=== PATIENT | female | born 1995 | race Caucasian/White ===

== ENCOUNTER 2018-04-24 20:53 | Emergency (ER) | payer BC ==
--- NOTE | 2018-04-24 21:27 | EDM.PDOC ---
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 Her last menstrual period was March 25 and she has very regular periods of 28 days. She hasn't had her period yet and she did a test at home that was positive. She comes to the ER because she wants a blood draw to confirm that she is . She is a 0 para 0 abortives 0. She has been having some abdomen mild cramping in the lower abdomen the last couple of days but no nausea or vomiting, no breast tenderness. - Related Data Allergies Allergy/AdvReac Type Severity Reaction Status Date / Time amoxicillin Allergy Other Verified 04/24/18 21:04 Home Meds: Home Meds . [No Known Home Meds] 04/24/18 [History] ED ROS GENERAL - Review of Systems Review Of Systems: See Below Constitutional: Reports: No Symptoms HEENT: Reports: No Symptoms Respiratory: Reports: No Symptoms Cardiovascular: Reports: No Symptoms Endocrine: Reports: No Symptoms GI/Abdominal: Reports: Other (As per history of present illness) : Reports: No Symptoms Musculoskeletal: Reports: No Symptoms Skin: Reports: No Symptoms Neurological: Reports: No Symptoms Psychiatric: Reports: No Symptoms Hematologic/Lymphatic: Reports: No Symptoms ED EXAM - Physical Exam Exam: See Below Exam Limited By: No Limitations General Appearance: Alert, WD/WN, No Apparent Distress Eye Exam: Bilateral Eye: Normal Inspection Ears: Normal External Exam Nose: Normal Inspection Throat/Mouth: Normal Inspection, Normal Lips, Normal Voice, No Airway Compromise Head: Normocephalic Neck: Supple Respiratory/Chest: No Respiratory Distress GI/Abdominal Exam: Normal Bowel Sounds, Soft, Non-Tender, No Mass Heart Tones: Not [place] Back Exam: Normal Inspection, Full Range of Motion Extremities: Normal Inspection, Normal Range of Motion Neurological: Alert, Oriented Psychiatric: Normal Affect, Normal Mood Skin Exam: Warm, Dry Course - Vital Signs Last Recorded V/S: Last Vital Signs Temp 98.0 F 04/24/18 21:01 Pulse 70 04/24/18 21:01 Resp 20 04/24/18 21:01 BP 135/72 04/24/18 21:01 Pulse Ox 100 04/24/18 21:01 - Orders/Labs/Meds Labs: Laboratory Tests 04/24/18 Range/Units 21:30 HCG, Quant 2253.0 mIU/mL - Re-Assessments/Exams Free Text/Narrative Re-Assessment/Exam: 04/24/18 22:37 I spoke to the patient regarding her positive test. I'll give her some names of doctors to follow up with for her OB care. I encouraged her on Friday to give the office a call so they can start her with care. Departure - Departure Time of Disposition: 22:38 Disposition: Home, Self-Care 01 Condition: Good Clinical Impression: test positive for normal first in first trimester - Discharge Information *PRESCRIPTION DRUG MONITORING PROGRAM REVIEWED*: Not Applicable *COPY OF PRESCRIPTION DRUG MONITORING REPORT IN PATIENT JOSHUA: Not Applicable Referrals: Rolf Ochoa MD [Physician] - Sammy Nolasco MD [Physician] - Forms: ED Department Discharge Additional Instructions: Continue with normal activity, you need to avoid aspirin, ibuprofen, Advil, Aleve and naproxen while you are , avoid all alcohol consumption, follow -up with the OB doctor by calling them on Friday to see when they would want come see them to start your first care visit, return to the ER if needed
== END 2018-04-24 22:46 | disposition home or self-care (01) ==
LOC: JD.ED 20:53
DX: Z32.01 Encounter for pregnancy test, result positive (principal); Z88.1 Allergy status to other antibiotic agents
CPT/HCPCS: 36415; 84702; 99282

== ENCOUNTER 2020-02-25 21:55 | Inpatient (IN) | payer BC, OTHER ==
--- NOTE | 2020-02-25 22:51 | PCM.LDHP ---
L&D History of Present Illness - General Date of Service: 02/25/20 Admit Problem/Dx: Patient Status Order with Admit Dx/Problem 02/25/20 22:11 Patient Status [ADT] Routine Admission Diagnosis/Problem Admission Diagnosis/Problem Source of Information: Patient History Limitations: Reports: No Limitations - History of Present Illness Introduction:: 24 y/o ANNA 03/01/2020 EGA 39w2d presented to L&D C/O leaking of amniotic fluid beginning at [id number]. Amnisure positive. GBS negative. Blood type O positive, antibody screen negative, Hgb/Hct 14.2/41.7, platelets [id number], Rubella immune, RPR NR, HBsAg NR, HIV NR, GC/CT probe none detected OBGS 118, Hgb 12.7, GBS 08/10/2019 negative. Plan delivery Improves with: Reports: None Worsens with: Reports: None Associated Symptoms: Reports: N - Related Data Allergies/Adverse Reactions: Allergies Allergy/AdvReac Type Severity Reaction Status Date / Time amoxicillin Allergy Other Verified 02/25/20 22:11 Home Medications: Home Meds . [No Known Home Meds] 04/24/18 [History] Past Medical History Dermatologic History: Reports: Other (See Below) Other Dermatologic History: pilonidol cyst and surgical removed and stayed in hospital for pain managment Social & Family History - Caffeine Use Caffeine Use: Reports: Coffee, Tea H&P Review of Systems - Review of Systems: Review Of Systems: See Below General: Reports: No Symptoms HEENT: Reports: No Symptoms Pulmonary: Reports: No Symptoms Cardiovascular: Reports: No Symptoms Gastrointestinal: Reports: No Symptoms Genitourinary: Reports: No Symptoms Musculoskeletal: Reports: No Symptoms Skin: Reports: No Symptoms Psychiatric: Reports: No Symptoms Neurological: Reports: No Symptoms Hematologic/Lymphatic: Reports: No Symptoms Immunologic: Reports: No Symptoms L&D Exam - Exam Exam: See Below - Vital Signs Weight: 189 lb 3.2 oz - OB Specific Fundal Height In cm: 39 Contraction Duration (sec): 60 Contraction Frequency (min): 5 Contraction Intensity: Mild to Moderate Movement: Active Heart Tones: Present Heart Tones per Min: 135 Heart Rate (FHR) Variability: Moderate (6-25 bmp) Presentation: Vertex - Hanley Score Hanley Score Cervix Position: Posterior Hanley Score Consistency: Soft Hanley Score Effacement: 31-50% Hanley Score Dilation: 1-2 cm Hanley Score 's Station: -2 Hanley Score Total: 5 - Exam General: Alert, Oriented HEENT: Conjunctiva Clear, Mucosa Moist & [place] Neck: Supple, Trachea Midline Lungs: Clear to Auscultation, Normal Respiratory Effort Cardiovascular: Regular Rate, Regular Rhythm GI/Abdominal Exam: Normal Bowel Sounds, Soft, Non-Tender Genitourinary: Normal external exam Extremities: Normal Inspection, Non-Tender, No Pedal Edema, Normal Capillary Refill Skin: Warm, Dry, Intact Psychiatric: Alert, Normal Affect, Normal Mood - Problem List (1) 39 weeks gestation of SNOMED Code(s): 01760050 ICD Code: Z3A.39 - 39 WEEKS GESTATION OF Status: Acute Current Visit: Yes (2) Premature rupture of membranes SNOMED Code(s): 82404768 ICD Code: O42.90 - TYSON ROM, 7TH0 BETW RUPT & ONST LABR, UNSP WEEKS OF GEST Status: Acute Current Visit: Yes Qualifiers: PROM onset of labor timing: onset of labor within 24 hours of rupture PROM gestational age: full term Qualified Code(s): O42.02 - Full-term premature rupture of membranes, onset of labor within 24 hours of rupture Problem List Initiated/Reviewed/Updated: No Orders Last 24hrs: Active Orders 24 hr Category Date Time Status Patient Status [ADT] Routine ADT 02/25/20 22:11 Active Non Stress Test [RC] PER UNIT ROUTINE Care 02/25/20 22:11 Active Vital Signs [RC] PER UNIT ROUTINE Care 02/25/20 22:11 Active AMNISURE RUPTURE MEMBRAN [BF] Stat Lab 02/25/20 22:30 Received Resuscitation Status Routine Resus Stat 02/25/20 22:11 Ordered Assessment/Plan Comment:: Plan delivery
[2020-02-25] MEDS ORDERED: Sodium Chloride 0.9% 10 ML Syringe FLUSH PRN (23:08)
[2020-02-25] MEDS ORDERED: Nalbuphine 10 MG/ML Syringe IVPUSH PRN (23:08)
[2020-02-25] MEDS ORDERED: Ondansetron 4 MG/2 ML SDV IVPUSH PRN (23:08)
[2020-02-25] MEDS ORDERED: Oxytocin/Lactated Ringers 20 UNIT/1,000 ML BAG IV SCH (23:15)
[2020-02-25] MEDS ORDERED: Oxytocin/Lactated Ringers 10 UNIT/1,000 ML BAG IV SCH (23:15)
[2020-02-26] MEDS: Lactated Ringers 1,000 ML IV SCH ×4 (01:47→06:16)
[2020-02-26] MEDS ORDERED: Bupivacaine/fentaNYL/NS 100 ML Bag EPIDUR PRN (02:16)
[2020-02-26] MEDS ORDERED: ePHEDrine 50 MG/ML SDV IVPUSH PRN (02:16)
[2020-02-26] MEDS ORDERED: diphenhydrAMINE 50 MG/ML SDV IVPUSH PRN (02:16)
[2020-02-26] MEDS ORDERED: fentaNYL 100 MCG/2 ML SDV EPIDUR PRN (02:16)
--- NOTE | 2020-02-26 03:33 | PCM.PREANE ---
Preanesthetic Assessment - Procedure Proposed Procedure: Epidural - Anesthesia/Transfusion/Family Hx Anesthesia History: Prior Anesthesia Without Reaction Transfusion History: No Prior Transfusion(s) - Review of Systems General: No Symptoms Pulmonary: No Symptoms Cardiovascular: No Symptoms Gastrointestinal: Abdominal Pain Neurological: No Symptoms Other: Reports: None - Physical Assessment Vital Signs: Last Vital Signs Temp 36.4 C 02/25/20 22:11 Pulse 66 02/25/20 22:11 Resp 16 02/25/20 22:11 BP 139/75 02/25/20 22:11 Pulse Ox 100 02/25/20 22:11 Height: 1.75 m Weight: 85.82 kg ASA Class: 2 Mental Status: Alert & Oriented x3 Airway Class: Mallampati = 1 Dentition: Reports: Normal Dentition Thyro-Mental Finger Breadths: 3 Mouth Opening Finger Breadths: 3 ROM/Head Extension: Full Lungs: Clear to Auscultation, Normal Respiratory Effort Cardiovascular: Regular Rate, Regular Rhythm - Lab Values: Laboratory Last Values WBC 13.55 K/mm3 (3.98-10.04) H 02/26/20 00:06 RBC 4.36 M/mm3 (3.98-5.22) 02/26/20 00:06 Hgb 13.1 gm/dl (11.2-15.7) 02/26/20 00:06 Hct 40.7 % (34.1-44.9) 02/26/20 00:06 MCV 93.3 fl (79.4-94.8) 02/26/20 00:06 MCH 30.0 pg (25.6-32.2) 02/26/20 00:06 MCHC 32.2 g/dl (32.2-35.5) 02/26/20 00:06 RDW Std Deviation 43.7 fL (36.4-46.3) 02/26/20 00:06 Plt Count 162 K/mm3 (182-369) L 02/26/20 00:06 MPV 12.8 fl (9.4-12.3) H 02/26/20 00:06 Neut % (Auto) 68.0 % (34.0-71.1) 02/26/20 00:06 Lymph % (Auto) 21.9 % (19.3-51.7) 02/26/20 00:06 [place] % (Auto) 8.9 % (4.7-12.5) 02/26/20 00:06 Eos % (Auto) 0.9 (0.7-5.8) 02/26/20 00:06 Baso % (Auto) 0.1 % (0.1-1.2) 02/26/20 00:06 Neut # (Auto) 9.21 K/mm3 (1.56-6.13) H 02/26/20 00:06 Lymph # (Auto) 2.97 K/mm3 (1.18-3.74) 02/26/20 00:06 [place] # (Auto) 1.20 K/mm3 (0.24-0.36) H 02/26/20 00:06 Eos # (Auto) 0.12 K/mm3 (0.04-0.36) 02/26/20 00:06 Baso # (Auto) 0.02 K/mm3 (0.01-0.08) 02/26/20 00:06 Manual Slide Review Abnormal smear 02/26/20 00:06 Membrane Rupture Positive H 02/25/20 22:30 Blood Type O POSITIVE 02/26/20 00:06 Gel Antibody Screen Negative 02/26/20 00:06 - Allergies Allergies/Adverse Reactions: Allergies Allergy/AdvReac Type Severity Reaction Status Date / Time amoxicillin Allergy Other Verified 02/25/20 22:11 - Acknowledgements Anesthesia Type Planned: Epidural Pt an Appropriate Candidate for the Planned Anesthesia: Yes Alternatives and Risks of Anesthesia Discussed w Pt/Guardian: Yes Pt/Guardian Understands and Agrees with Anesthesia Plan: Yes PreAnesthesia Questionnaire HEENT History: Reports: Impaired Vision, Other (See Below) Other HEENT History: wears glasses/contacts MEDICAL COLLECTIONS History: Reports: Neurological History: Reports: Migraines Dermatologic History: Reports: Other (See Below) Other Dermatologic History: pilonidol cyst and surgical removed and stayed in hospital for pain managment - Infectious Disease History Infectious Disease History: Reports: Chicken Pox - Past Surgical History Musculoskeletal Surgical History: Reports: Other (See Below) Other Musculoskeletal Surgeries/Procedures:: tailbone surgery 2013. - SUBSTANCE USE Smoking Status *Q: Never Smoker Recreational Drug Use History: No - HOME MEDS Home Medications: Home Meds Calcium Carbonate [Tums] 500 mg PO 02/26/20 [History] Vits #93/Iron Fum/FA [ Formula Tablet] 1 each PO 02/26/20 [ History] - CURRENT (IN HOUSE) MEDS Current Meds: Current Medications Diphenhydramine HCl (Benadryl) 25 mg IVPUSH Q6H PRN PRN Reason: pruritis Ephedrine Sulfate (Ephedrine Sulfate) 5 mg IVPUSH ASDIRECTED PRN PRN Reason: Hypotension Fentanyl (Sublimaze) 100 mcg EPIDUR Q3H PRN PRN Reason: Pain Last Admin: 02/26/20 02:35 Dose: 100 mcg Fentanyl/Bupivacaine HCl (Fentanyl/Bupivacaine/Ns 2 Mcg-0.125% 100 Ml) 100 ml EPIDUR ASDIRECTED PRN PRN Reason: Pain Last Admin: 02/26/20 02:44 Dose: 100 ml Lactated Ringer's (Ringers, Lactated) 1,000 mls @ 100 mls/hr IV ASDIRECTED LINDA Last Infusion: 02/26/20 03:03 Dose: 150 mls/hr Oxytocin/Lactated Ringer's (Pitocin In Lr 20 Units/1,000 Ml) 20 unit in 1,000 mls @ 500 mls/hr IV .CONTINUOUS LINDA Oxytocin/Lactated Ringer's (Pitocin In Lr 10 Units/1,000 Ml) 10 unit in 1,000 mls @ 12 mls/hr IV TITRATE LINDA; Protocol Nalbuphine HCl (Nubain) 10 mg IVPUSH Q2H PRN PRN Reason: Pain Ondansetron HCl (Zofran) 4 mg IVPUSH Q4H PRN PRN Reason: Nausea/Vomiting Sodium Chloride (Saline Flush) 10 ml FLUSH ASDIRECTED PRN PRN Reason: Keep Vein Open
--- NOTE | 2020-02-26 07:42 | PCM.DEL ---
L & D Note - General Info Date of Service: 02/26/20 Mother's Due Date: 03/01/20 - Delivery Note Labor: Spontaneous Delivery Outcome: Livebirth (male liveborn Friday02/26[birth year]2020 0725 MUKUND under epidural over no episiotomy or laceration, nuchal cord x1 reduced over head. APGARS 8/9. Weight pending) Infant Delivery Method: Spontaneous Vaginal Delivery-Single Infant Delivery Mode: Spontaneous Presentation: Left Occiput Anterior (MUKUND) Nuchal Cord: Present (x1) Prep: Povidone-Iodine (Betadine Anesthesia Type: Epidural Amniotic Fluid Description: Clear Episiotomy Type: None Laceration: None Placenta: Intact, Spontaneous (72802/26/2020) Cord: 3 Vessels Estimated Blood Loss: 250 Resuscitation Needed: No : Suctioned, Bulb Syringe, Stimulated, Warmed, Marcell Used, Warmer Used Provider: Ortiz Morrissey Score 1 min: 8 Score 5 min: 9 - General Info Date of Service: 02/26/20 Functional Status: Reports: Pain Controlled - Review of Systems General: Reports: No Symptoms HEENT: Reports: No Symptoms Pulmonary: Reports: No Symptoms Cardiovascular: Reports: No Symptoms Gastrointestinal: Reports: No Symptoms Genitourinary: Reports: No Symptoms Musculoskeletal: Reports: No Symptoms Skin: Reports: No Symptoms Neurological: Reports: No Symptoms Psychiatric: Reports: No Symptoms - Patient Data Vitals - Most Recent: Last Vital Signs Temp 97.6 F 02/25/20 22:11 Pulse 66 02/25/20 22:11 Resp 16 02/25/20 22:11 BP 139/75 02/25/20 22:11 Pulse Ox 100 02/25/20 22:11 Weight - Most Recent: 189 lb 3.2 oz Lab Results Last 24 Hours: Laboratory Results - last 24 hr 02/25/20 02/26/20 02/26/20 Range/Units 22:30 00:06 00:06 WBC 13.55 H (3.98-10.04) K/mm3 RBC 4.36 (3.98-5.22) M/mm3 Hgb 13.1 (11.2-15.7) gm/dl Hct 40.7 (34.1-44.9) % MCV 93.3 (79.4-94.8) fl MCH 30.0 (25.6-32.2) pg MCHC 32.2 (32.2-35.5) g/dl RDW Std Deviation 43.7 (36.4-46.3) fL Plt Count 162 L (182-369) K/mm3 MPV 12.8 H (9.4-12.3) fl Neut % (Auto) 68.0 (34.0-71.1) % Lymph % (Auto) 21.9 (19.3-51.7) % [place] % (Auto) 8.9 (4.7-12.5) % Eos % (Auto) 0.9 (0.7-5.8) Baso % (Auto) 0.1 (0.1-1.2) % Neut # (Auto) 9.21 H (1.56-6.13) K/mm3 Lymph # (Auto) 2.97 (1.18-3.74) K/mm3 [place] # (Auto) 1.20 H (0.24-0.36) K/mm3 Eos # (Auto) 0.12 (0.04-0.36) K/mm3 Baso # (Auto) 0.02 (0.01-0.08) K/mm3 Manual Slide Review Abnormal smear Membrane Rupture Positive H Blood Type O POSITIVE Gel Antibody Screen Negative Med Orders - Current: Current Medications Diphenhydramine HCl (Benadryl) 25 mg IVPUSH Q6H PRN PRN Reason: pruritis Ephedrine Sulfate (Ephedrine Sulfate) 5 mg IVPUSH ASDIRECTED PRN PRN Reason: Hypotension Fentanyl (Sublimaze) 100 mcg EPIDUR Q3H PRN PRN Reason: Pain Last Admin: 02/26/20 02:35 Dose: 100 mcg Fentanyl/Bupivacaine HCl (Fentanyl/Bupivacaine/Ns 2 Mcg-0.125% 100 Ml) 100 ml EPIDUR ASDIRECTED PRN PRN Reason: Pain Last Admin: 02/26/20 02:44 Dose: 100 ml Lactated Ringer's (Ringers, Lactated) 1,000 mls @ 100 mls/hr IV ASDIRECTED LINDA Last Admin: 02/26/20 06:16 Dose: 100 mls/hr Oxytocin/Lactated Ringer's (Pitocin In Lr 20 Units/1,000 Ml) 20 unit in 1,000 mls @ 500 mls/hr IV .CONTINUOUS LINDA Oxytocin/Lactated Ringer's (Pitocin In Lr 10 Units/1,000 Ml) 10 unit in 1,000 mls @ 12 mls/hr IV TITRATE LINDA; Protocol Nalbuphine HCl (Nubain) 10 mg IVPUSH Q2H PRN PRN Reason: Pain Ondansetron HCl (Zofran) 4 mg IVPUSH Q4H PRN PRN Reason: Nausea/Vomiting Sodium Chloride (Saline Flush) 10 ml FLUSH ASDIRECTED PRN PRN Reason: Keep Vein Open - Exam General: Alert, Oriented HEENT: Pupils Equal, Mucous Membr. Moist/[place] Neck: Supple Lungs: Clear to Auscultation, Normal Respiratory Effort Cardiovascular: Regular Rate, Regular Rhythm GI/Abdominal Exam: Normal Bowel Sounds Extremities: Normal Inspection, Non-Tender, No Pedal Edema, Normal Capillary Refill Skin: Warm, Dry, Intact Psy/Mental Status: Alert, Normal Affect, Normal Mood - Problem List & Annotations (1) 39 weeks gestation of SNOMED Code(s): 05353615 Code(s): Z3A.39 - 39 WEEKS GESTATION OF Status: Acute Current Visit: Yes (2) Premature rupture of membranes SNOMED Code(s): 84342500 Code(s): O42.90 - TYSON ROM, 7TH0 BETW RUPT & ONST LABR, UNSP WEEKS OF GEST Status: Acute Current Visit: Yes Qualifiers: PROM onset of labor timing: onset of labor within 24 hours of rupture PROM gestational age: full term Qualified Code(s): O42.02 - Full-term premature rupture of membranes, onset of labor within 24 hours of rupture (3) Encounter for full-term uncomplicated delivery SNOMED Code(s): 457585992 Code(s): O80 - ENCOUNTER FOR FULL-TERM UNCOMPLICATED DELIVERY Status: Acute Current Visit: Yes - Problem List Review Problem List Initiated/Reviewed/Updated: No - My Orders Last 24 Hours: My Active Orders 02/25/20 22:11 Non Stress Test [RC] PER UNIT ROUTINE Vital Signs [RC] PER UNIT ROUTINE Resuscitation Status Routine 02/25/20 23:08 Patient Status [ADT] Routine Activity as Tolerated [RC] PFP Communication Order [RC] ASDIRECTED Notify Provider [RC] PFP Notify Provider [RC] PRN RAPID PLASMA REAGIN,RPR [CHEM] Routine Nalbuphine [Nubain] 10 mg IVPUSH Q2H PRN Ondansetron [Zofran] 4 mg IVPUSH Q4H PRN Sodium Chloride 0.9% [Saline Flush] 10 ml FLUSH ASDIRECTED PRN Electronic Heart Tones Ext w TOCO [WOMSER] Routine Electronic Heart Tones Internal [WOMSER] Per Unit Routine Peripheral IV Insertion Adult [OM.PC] Routine 02/25/20 23:09 Heart Tones [RC] ASDIRECTED Peripheral IV Care [RC] . DIRECTED 02/25/20 23:15 Lactated Ringers [Ringers, Lactated] 1,000 ml IV ASDIRECTED Oxytocin/Lactated Ringers [Pitocin in LR 10 Units/1,000 ML] 10 unit in 1,000 ml IV TITRATE Oxytocin/Lactated Ringers [Pitocin in LR 20 Units/1,000 ML] 20 unit in 1,000 ml IV .CONTINUOUS 02/25/20 Breakfast Regular Diet [DIET] 02/26/20 01:24 PATIENT RETYPE [BBK] Routine - Assessment Assessment:: Normal delivery no lacerations, premature rupture of membranes delivered in <24 hours, 39w3d EGA - Plan Plan:: Plan delivery
[2020-02-26] MEDS ORDERED: Ibuprofen 600 MG Tab PO PRN (08:49)
[2020-02-26] MEDS ORDERED: Bupivacaine 0.25% 10 ML SDV ONE (11:00)
[2020-02-26] MEDS ORDERED: Docusate Sodium 100 MG Cap PO PRN (11:50)
[2020-02-26] MEDS ORDERED: Acetaminophen 325 MG Tab PO PRN (11:50)
[2020-02-26] MEDS ORDERED: Witch Hazel Medicated Pads 40/Jar TOP PRN (11:50)
[2020-02-26] MEDS: Ibuprofen 600 MG Tab PO PRN ×2 (15:22→20:59)
[2020-02-27] MEDS: Ibuprofen 600 MG Tab PO PRN (09:13)
--- NOTE | 2020-02-27 10:47 | PCM.DCSUM1 ---
Discharge Summary - Hospital Course Free Text/Narrative:: [facility] LIVE L/D Delivery Note Patient Name: JUAN MIRANDA Date of : 89 Patient Status: Inpatient Attending Provider: Ortiz Morrissey Date: 02/26/20 07:36 Initialization Date: 02/26/20 07:36 L & D Note - General Info Date of Service: 02/26/20 Mother's Due Date: 03/01/20 - Delivery Note Labor: Spontaneous Delivery Outcome: Livebirth (male liveborn Friday02/26/2020 0725 MUKUND under epidural over no episiotomy or laceration, nuchal cord x1 reduced over head. APGARS 8/9. Weight pending) Delivery Method: Spontaneous Vaginal Delivery-Single Infant Delivery Mode: Spontaneous Presentation: Left Occiput Anterior (MUKUND) Nuchal Cord: Present (x1) Prep: Povidone-Iodine (Betadine Anesthesia Type: Epidural Amniotic Fluid Description: Clear Episiotomy Type: None Laceration: None Placenta: Intact, Spontaneous (72802/26/2020) Cord: 3 Vessels Estimated Blood Loss: 250 Resuscitation Needed: No Villanueva: Suctioned, Bulb Syringe, Stimulated, Warmed, Startex Used, Warmer Used Provider: Ortiz Morrissey Score 1 min: 8 Score 5 min: 9 - General Info Date of Service: 02/26/20 Functional Status: Reports: Pain Controlled - Review of Systems General: Reports: No Symptoms HEENT: Reports: No Symptoms Pulmonary: Reports: No Symptoms Cardiovascular: Reports: No Symptoms Gastrointestinal: Reports: No Symptoms Genitourinary: Reports: No Symptoms Musculoskeletal: Reports: No Symptoms Skin: Reports: No Symptoms Neurological: Reports: No Symptoms Psychiatric: Reports: No Symptoms - Patient Data Vitals - Most Recent: Last Vital Signs Temp 97.6 F 02/25/20 22:11 Pulse 66 02/25/20 22:11 Resp 16 02/25/20 22:11 BP 139/75 02/25/20 22:11 Pulse Ox 100 02/25/20 22:11 Weight - Most Recent: 189 lb 3.2 oz Lab Results Last 24 Hours: Laboratory Results - last 24 hr 02/25/20 02/26/2002/25/20 Range/Units 22:30 00:06 00:06 WBC 13.55 H (3.98-10.04) K/mm3 RBC 4.36 (3.98-5.22) M/mm3 Hgb 13.1 (11.2-15.7) gm/dl Hct 40.7 (34.1-44.9) % MCV 93.3 (79.4-94.8) fl MCH 30.0 (25.6-32.2) pg MCHC 32.2 (32.2-35.5) g/dl RDW Std Deviation 43.7 (36.4-46.3) fL Plt Count 162 L (182-369) K/mm3 MPV 12.8 H (9.4-12.3) fl Neut % (Auto) 68.0 (34.0-71.1) % Lymph % (Auto) 21.9 (19.3-51.7) % Walker % (Auto) 8.9 (4.7-12.5) % Eos % (Auto) 0.9 (0.7-5.8) Baso % (Auto) 0.1 (0.1-1.2) % Neut # (Auto) 9.21 H (1.56-6.13) K/mm3 Lymph # (Auto) 2.97 (1.18-3.74) K/mm3 Walker # (Auto) 1.20 H (0.24-0.36) K/mm3 Eos # (Auto) 0.12 (0.04-0.36) K/mm3 Baso # (Auto) 0.02 (0.01-0.08) K/mm3 Manual Slide Review Abnormal smear Membrane Rupture Positive H Blood Type O POSITIVE Gel Antibody Screen Negative Med Orders - Current: Current Medications Diphenhydramine HCl (Benadryl) 25 mg IVPUSH Q6H PRN PRN Reason: pruritis Ephedrine Sulfate (Ephedrine Sulfate) 5 mg IVPUSH ASDIRECTED PRN PRN Reason: Hypotension Fentanyl (Sublimaze) 100 mcg EPIDUR Q3H PRN PRN Reason: Pain Last Admin: 02/26/20 02:35 Dose: 100 mcg Fentanyl/Bupivacaine HCl (Fentanyl/Bupivacaine/Ns 2 Mcg-0.125% 100 Ml) 100 ml EPIDUR ASDIRECTED PRN PRN Reason: Pain Last Admin: 02/26/20 02:44 Dose: 100 ml Lactated Ringer's (Ringers, Lactated) 1,000 mls @ 100 mls/hr IV ASDIRECTED LINDA Last Admin: 02/26/20 06:16 Dose: 100 mls/hr Oxytocin/Lactated Ringer's (Pitocin In Lr 20 Units/1,000 Ml) 20 unit in 1,000 mls @ 500 mls/hr IV .CONTINUOUS LINDA Oxytocin/Lactated Ringer's (Pitocin In Lr 10 Units/1,000 Ml) 10 unit in 1,000 mls @ 12 mls/hr IV TITRATE LINDA; Protocol Nalbuphine HCl (Nubain) 10 mg IVPUSH Q2H PRN PRN Reason: Pain Ondansetron HCl (Zofran) 4 mg IVPUSH Q4H PRN PRN Reason: Nausea/Vomiting Sodium Chloride (Saline Flush) 10 ml FLUSH ASDIRECTED PRN PRN Reason: Keep Vein Open - Exam General: Alert, Oriented HEENT: Pupils Equal, Mucous Membr. Moist/[place] Neck: Supple Lungs: Clear to Auscultation, Normal Respiratory Effort Cardiovascular: Regular Rate, Regular Rhythm GI/Abdominal Exam: Normal Bowel Sounds Extremities: Normal Inspection, Non-Tender, No Pedal Edema, Normal Capillary Refill Skin: Warm, Dry, Intact Psy/Mental Status: Alert, Normal Affect, Normal Mood - Problem List & Annotations (1) 39 weeks gestation of SNOMED Code(s): 75225668 Code(s): Z3A.39 - 39 WEEKS GESTATION OF Status: Acute Current Visit: Yes (2) Premature rupture of membranes SNOMED Code(s): 95277332 Code(s): O42.90 - TYSON ROM, 7TH0 BETW RUPT & ONST LABR, UNSP WEEKS OF GEST Status: Acute Current Visit: Yes Qualifiers: PROM onset of labor timing: onset of labor within 24 hours of rupture PROM gestational age: full term Qualified Code(s): O42.02 - Full-term premature rupture of membranes, onset of labor within 24 hours of rupture (3) Encounter for full-term uncomplicated delivery SNOMED Code(s): 487202982 Code(s): O80 - ENCOUNTER FOR FULL-TERM UNCOMPLICATED DELIVERY Status: Acute Current Visit: Yes - Problem List Review Problem List Initiated/Reviewed/Updated: No - My Orders Last 24 Hours: My Active Orders 02/25/20 22:11 Non Stress Test [RC] PER UNIT ROUTINE Vital Signs [RC] PER UNIT ROUTINE Resuscitation Status Routine 02/25/20 23:08 Patient Status [ADT] Routine Activity as Tolerated [RC] PFP Communication Order [RC] ASDIRECTED Notify Provider [RC] PFP Notify Provider [RC] PRN RAPID PLASMA REAGIN,RPR [CHEM] Routine Nalbuphine [Nubain] 10 mg IVPUSH Q2H PRN Ondansetron [Zofran] 4 mg IVPUSH Q4H PRN Sodium Chloride 0.9% [Saline Flush] 10 ml FLUSH ASDIRECTED PRN Electronic Heart Tones Ext w TOCO [WOMSER] Routine Electronic Heart Tones Internal [WOMSER] Per Unit Routine Peripheral IV Insertion Adult [OM.PC] Routine 02/25/20 23:09 Heart Tones [RC] ASDIRECTED Peripheral IV Care [RC] . DIRECTED 02/25/20 23:15 Lactated Ringers [Ringers, Lactated] 1,000 ml IV ASDIRECTED Oxytocin/Lactated Ringers [Pitocin in LR 10 Units/1,000 ML] 10 unit in 1,000 ml IV TITRATE Oxytocin/Lactated Ringers [Pitocin in LR 20 Units/1,000 ML] 20 unit in 1,000 ml IV .CONTINUOUS 02/25/20 Breakfast Regular Diet [DIET] 02/26/20 01:24 PATIENT RETYPE [BBK] Routine - Assessment Assessment:: Normal delivery no lacerations, premature rupture of membranes delivered in <24 hours, 39w3d EGA - Plan Plan:: Plan delivery HPI Initial Comments: [facility] LIVE L/D Delivery Note Patient Name: JUAN MIRANDA Date of : 89 Patient Status: Inpatient Attending Provider: Ortiz Morrissey Date: 02/26/20 07:36 Initialization Date: 02/26/20 07:36 L & D Note - General Info Date of Service: 02/26/20 Mother's Due Date: 03/01/20 - Delivery Note Labor: Spontaneous Delivery Outcome: Livebirth (male liveborn Friday02/26/2020 0725 MUKUND under epidural over no episiotomy or laceration, nuchal cord x1 reduced over head. APGARS 8/9. Weight pending) Delivery Method: Spontaneous Vaginal Delivery-Single Infant Delivery Mode: Spontaneous Presentation: Left Occiput Anterior (MUKUND) Nuchal Cord: Present (x1) Prep: Povidone-Iodine (Betadine Anesthesia Type: Epidural Amniotic Fluid Description: Clear Episiotomy Type: None Laceration: None Placenta: Intact, Spontaneous (72802/26/2020) Cord: 3 Vessels Estimated Blood Loss: 250 Resuscitation Needed: No Villanueva: Suctioned, Bulb Syringe, Stimulated, Warmed, Startex Used, Warmer Used Provider: Ortiz Morrissey Score 1 min: 8 Score 5 min: 9 - General Info Date of Service: 02/26/20 Functional Status: Reports: Pain Controlled - Review of Systems General: Reports: No Symptoms HEENT: Reports: No Symptoms Pulmonary: Reports: No Symptoms Cardiovascular: Reports: No Symptoms Gastrointestinal: Reports: No Symptoms Genitourinary: Reports: No Symptoms Musculoskeletal: Reports: No Symptoms Skin: Reports: No Symptoms Neurological: Reports: No Symptoms Psychiatric: Reports: No Symptoms - Patient Data Vitals - Most Recent: Last Vital Signs Temp 97.6 F 02/25/20 22:11 Pulse 66 02/25/20 22:11 Resp 16 02/25/20 22:11 BP 139/75 02/25/20 22:11 Pulse Ox 100 02/25/20 22:11 Weight - Most Recent: 189 lb 3.2 oz Lab Results Last 24 Hours: Laboratory Results - last 24 hr 02/25/20 02/26/20 02/26/20 Range/Units 22:30 00:06 00:06 WBC 13.55 H (3.98-10.04) K/mm3 RBC 4.36 (3.98-5.22) M/mm3 Hgb 13.1 (11.2-15.7) gm/dl Hct 40.7 (34.1-44.9) % MCV 93.3 (79.4-94.8) fl MCH 30.0 (25.6-32.2) pg MCHC 32.2 (32.2-35.5) g/dl RDW Std Deviation 43.7 (36.4-46.3) fL Plt Count 162 L (182-369) K/mm3 MPV 12.8 H (9.4-12.3) fl Neut % (Auto) 68.0 (34.0-71.1) % Lymph % (Auto) 21.9 (19.3-51.7) % Walker % (Auto) 8.9 (4.7-12.5) % Eos % (Auto) 0.9 (0.7-5.8) Baso % (Auto) 0.1 (0.1-1.2) % Neut # (Auto) 9.21 H (1.56-6.13) K/mm3 Lymph # (Auto) 2.97 (1.18-3.74) K/mm3 Walker # (Auto) 1.20 H (0.24-0.36) K/mm3 Eos # (Auto) 0.12 (0.04-0.36) K/mm3 Baso # (Auto) 0.02 (0.01-0.08) K/mm3 Manual Slide Review Abnormal smear Membrane Rupture Positive H Blood Type O POSITIVE Gel Antibody Screen Negative Med Orders - Current: Current Medications Diphenhydramine HCl (Benadryl) 25 mg IVPUSH Q6H PRN PRN Reason: pruritis Ephedrine Sulfate (Ephedrine Sulfate) 5 mg IVPUSH ASDIRECTED PRN PRN Reason: Hypotension Fentanyl (Sublimaze) 100 mcg EPIDUR Q3H PRN PRN Reason: Pain Last Admin: 02/26/20 02:35 Dose: 100 mcg Fentanyl/Bupivacaine HCl (Fentanyl/Bupivacaine/Ns 2 Mcg-0.125% 100 Ml) 100 ml EPIDUR ASDIRECTED PRN PRN Reason: Pain Last Admin: 02/26/20 02:44 Dose: 100 ml Lactated Ringer's (Ringers, Lactated) 1,000 mls @ 100 mls/hr IV ASDIRECTED LINDA Last Admin: 02/26/20 06:16 Dose: 100 mls/hr Oxytocin/Lactated Ringer's (Pitocin In Lr 20 Units/1,000 Ml) 20 unit in 1,000 mls @ 500 mls/hr IV .CONTINUOUS LINDA Oxytocin/Lactated Ringer's (Pitocin In Lr 10 Units/1,000 Ml) 10 unit in 1,000 mls @ 12 mls/hr IV TITRATE LINDA; Protocol Nalbuphine HCl (Nubain) 10 mg IVPUSH Q2H PRN PRN Reason: Pain Ondansetron HCl (Zofran) 4 mg IVPUSH Q4H PRN PRN Reason: Nausea/Vomiting Sodium Chloride (Saline Flush) 10 ml FLUSH ASDIRECTED PRN PRN Reason: Keep Vein Open - Exam General: Alert, Oriented HEENT: Pupils Equal, Mucous Membr. Moist/[place] Neck: Supple Lungs: Clear to Auscultation, Normal Respiratory Effort Cardiovascular: Regular Rate, Regular Rhythm GI/Abdominal Exam: Normal Bowel Sounds Extremities: Normal Inspection, Non-Tender, No Pedal Edema, Normal Capillary Refill Skin: Warm, Dry, Intact Psy/Mental Status: Alert, Normal Affect, Normal Mood - Problem List & Annotations (1) 39 weeks gestation of SNOMED Code(s): 12377372 Code(s): Z3A.39 - 39 WEEKS GESTATION OF Status: Acute Current Visit: Yes (2) Premature rupture of membranes SNOMED Code(s): 08734687 Code(s): O42.90 - TYSON ROM, 7TH0 BETW RUPT & ONST LABR, UNSP WEEKS OF GEST Status: Acute Current Visit: Yes Qualifiers: PROM onset of labor timing: onset of labor within 24 hours of rupture PROM gestational age: full term Qualified Code(s): O42.02 - Full-term premature rupture of membranes, onset of labor within 24 hours of rupture (3) Encounter for full-term uncomplicated delivery SNOMED Code(s): 723859002 Code(s): O80 - ENCOUNTER FOR FULL-TERM UNCOMPLICATED DELIVERY Status: Acute Current Visit: Yes - Problem List Review Problem List Initiated/Reviewed/Updated: No - My Orders Last 24 Hours: My Active Orders 02/25/20 22:11 Non Stress Test [RC] PER UNIT ROUTINE Vital Signs [RC] PER UNIT ROUTINE Resuscitation Status Routine 02/25/20 23:08 Patient Status [ADT] Routine Activity as Tolerated [RC] PFP Communication Order [RC] ASDIRECTED Notify Provider [RC] PFP Notify Provider [RC] PRN RAPID PLASMA REAGIN,RPR [CHEM] Routine Nalbuphine [Nubain] 10 mg IVPUSH Q2H PRN Ondansetron [Zofran] 4 mg IVPUSH Q4H PRN Sodium Chloride 0.9% [Saline Flush] 10 ml FLUSH ASDIRECTED PRN Electronic Heart Tones Ext w TOCO [WOMSER] Routine Electronic Heart Tones Internal [WOMSER] Per Unit Routine Peripheral IV Insertion Adult [OM.PC] Routine 02/25/20 23:09 Heart Tones [RC] ASDIRECTED Peripheral IV Care [RC] . DIRECTED 02/25/20 23:15 Lactated Ringers [Ringers, Lactated] 1,000 ml IV ASDIRECTED Oxytocin/Lactated Ringers [Pitocin in LR 10 Units/1,000 ML] 10 unit in 1,000 ml IV TITRATE Oxytocin/Lactated Ringers [Pitocin in LR 20 Units/1,000 ML] 20 unit in 1,000 ml IV .CONTINUOUS 02/25/20 Breakfast Regular Diet [DIET] 02/26/20 01:24 PATIENT RETYPE [BBK] Routine - Assessment Assessment:: Normal delivery no lacerations, premature rupture of membranes delivered in <24 hours, 39w3d EGA - Plan Plan:: Plan delivery Brief History: [facility] LIVE . L/D Delivery Note. Patient Name: JUAN MIRANDA Record Number: [id number]. Date of : Patient Status: Inpatient. Attending Provider: Ortiz Morrissey Number: [id number]. Date: 02/26/20 07:36Initialization Date: 02/26/20 07:36. L & D Note. - General Info. Date of Service: 02/26/20. Mother's Due Date: 03/01/20. - Delivery Note. Labor: Spontaneous. Delivery Outcome: Livebirth ( male liveborn Friday02/26/2020 0725 MUKUND under epidural over no episiotomy or laceration, nuchal cord x1 reduced over head. APGARS 8/9. Weight pending). Infant Delivery Method: Spontaneous Vaginal Delivery-Single. Delivery Mode: Spontaneous. Presentation: Left Occiput Anterior (MUKUND). Nuchal Cord: Present (x1). Prep: Povidone-Iodine (Betadine. Anesthesia Type: Epidural. Amniotic Fluid Description: Clear. Episiotomy Type: None. Laceration: None. Placenta: Intact, Spontaneous (72802/26/2020). Cord: 3 Vessels. Estimated Blood Loss: 250. Resuscitation Needed: No. : Suctioned, Bulb Syringe, Stimulated, Warmed, Startex Used, Warmer Used. Provider: Ortiz Morrissey. Score 1 min: 8. Score 5 min : 9. - General Info. Date of Service: 02/26/20. Functional Status: Reports: Pain Controlled. - Review of Systems. General: Reports: No Symptoms. HEENT: Reports: No Symptoms. Pulmonary: Reports: No Symptoms. Cardiovascular: Reports : No Symptoms. Gastrointestinal: Reports: No Symptoms. Genitourinary: Reports : No Symptoms. Musculoskeletal: Reports: No Symptoms. Skin: Reports: No Symptoms. Neurological: Reports: No Symptoms. Psychiatric: Reports: No Symptoms. - Patient Data. Vitals - Most Recent: Last Vital Signs. Temp 97.6 F 02/25/20 22:11. Pulse 66 02/25/20 22:11. Resp 16 02/25/20 22:11. BP 139/ 75 02/25/20 22:11. Pulse Ox 100 02/25/20 22:11. Weight - Most Recent: 189 lb 3.2 oz. Lab Results Last 24 Hours: Laboratory Results - last 24 hr. 2004/Range/Units. 22:3000:0600:06. WBC 13.55 H (3.98-10.04) K/ mm3. RBC 4.36 (3.98-5.22) M/mm3. Hgb 13.1 (11.2-15.7) gm/dl. Hct 40.7 (34.1 -44.9) %. MCV 93.3 (79.4-94.8) fl. MCH 30.0 (25.6-32.2) pg. MCHC 32.2 ( 32.2-35.5) g/dl. RDW Std Deviation 43.7 (36.4-46.3) fL. Plt Count 162 L (182 -369) K/mm3. MPV 12.8 H (9.4-12.3) fl. Neut % (Auto) 68.0 (34.0-71.1) %. Lymph % (Auto) 21.9 (19.3-51.7) %. Walker % (Auto) 8.9 (4.7-12.5) %. Eos % ( Auto) 0.9 (0.7-5.8). Baso % (Auto) 0.1 (0.1-1.2) %. Neut # (Auto) 9.21 H ( 1.56-6.13) K/mm3. Lymph # (Auto) 2.97 (1.18-3.74) K/mm3. Walker # (Auto) 1.20 H (0.24-0.36) K/mm3. Eos # (Auto) 0.12 (0.04-0.36) K/mm3. Baso # (Auto) 0.02 (0.01-0.08) K/mm3. Manual Slide Review Abnormal smear. Membrane Rupture Positive H. Blood Type O POSITIVE. Gel Antibody Screen Negative. Med Orders - Current: Current Medications. Diphenhydramine HCl (Benadryl) 25 mg IVPUSH Q6H PRN. PRN Reason: pruritis. Ephedrine Sulfate (Ephedrine Sulfate) 5 mg IVPUSH ASDIRECTED PRN. PRN Reason: Hypotension. Fentanyl (Sublimaze) 100 mcg EPIDUR Q3H PRN. PRN Reason: Pain. Last Admin: 02/26/20 02:35 Dose: 100 mcg. Fentanyl/Bupivacaine HCl (Fentanyl/Bupivacaine/Ns 2 Mcg-0.125% 100 Ml ) 100 ml EPIDUR ASDIRECTED PRN. PRN Reason: Pain. Last Admin: 02/26/20 02:44 Dose: 100 ml. Lactated Ringer's (Ringers, Lactated) 1,000 mls @ 100 mls/hr IV ASDIRECTED LINDA. Last Admin: 02/26/20 06:16 Dose: 100 mls/hr. Oxytocin/ Lactated Ringer's (Pitocin In Lr 20 Units/1,000 Ml) 20 unit in 1,000 mls @ 500 mls/hr IV .CONTINUOUS LINDA. Oxytocin/Lactated Ringer's (Pitocin In Lr 10 Units/1 ,000 Ml) 10 unit in 1,000 mls @ 12 mls/hr IV TITRATE LINDA; Protocol. Nalbuphine HCl (Nubain) 10 mg IVPUSH Q2H PRN. PRN Reason: Pain. Ondansetron HCl (Zofran) 4 mg IVPUSH Q4H PRN. PRN Reason: Nausea/Vomiting. Sodium Chloride (Saline Flush) 10 ml FLUSH ASDIRECTED PRN. PRN Reason: Keep Vein Open. - Exam. General: Alert, Oriented. HEENT: Pupils Equal, Mucous Membr. Moist/[place]. Neck: Supple. Lungs: Clear to Auscultation, Normal Respiratory Effort. Cardiovascular: Regular Rate, Regular Rhythm. GI/Abdominal Exam: Normal Bowel Sounds. Extremities: Normal Inspection, Non-Tender, No Pedal Edema , Normal Capillary Refill. Skin: Warm, Dry, Intact. Psy/Mental Status: Alert, Normal Affect, Normal Mood. - Problem List & Annotations. (1) 39 weeks gestation of . SNOMED Code(s): 70365663. Code(s): Z3A.39 - 39 WEEKS GESTATION OF Status: Acute Current Visit: Yes. (2) Premature rupture of membranes. SNOMED Code(s): 21437051. Code(s): O42.90 - TYSON ROM, 7TH0 BETW RUPT & ONST LABR, UNSP WEEKS OF GEST Status: Acute Current Visit: Yes. Qualifiers: PROM onset of labor timing: onset of labor within 24 hours of rupture PROM gestational age: full term Qualified Code(s): O42.02 - Full- term premature rupture of membranes, onset of labor within 24 hours of rupture. (3) Encounter for full-term uncomplicated delivery. SNOMED Code(s): 370295826. Code(s): O80 - ENCOUNTER FOR FULL-TERM UNCOMPLICATED DELIVERY Status: Acute Current Visit: Yes. - Problem List Review. Problem List Initiated/Reviewed/Updated: No. - My Orders. Last 24 Hours: My Active Orders. 02/25/20 22:11. Non Stress Test [RC] PER UNIT ROUTINE. Vital Signs [RC] PER UNIT ROUTINE. Resuscitation Status Routine. 02/25/20 23:08. Patient Status [ADT] Routine. Activity as Tolerated [RC] PFP. Communication Order [RC] ASDIRECTED. Notify Provider [RC] PFP. Notify Provider [RC] PRN. RAPID PLASMA REAGIN,RPR [CHEM] Routine. Nalbuphine [Nubain] 10 mg IVPUSH Q2H PRN. Ondansetron [Zofran] 4 mg IVPUSH Q4H PRN. Sodium Chloride 0.9% [Saline Flush] 10 ml FLUSH ASDIRECTED PRN. Electronic Heart Tones Ext w TOCO [ WOMSER] Routine. Electronic Heart Tones Internal [WOMSER] Per Unit Routine. Peripheral IV Insertion Adult [OM.PC] Routine. 02/25/20 23:09. Heart Tones [RC] ASDIRECTED. Peripheral IV Care [RC] . DIRECTED. 02/24 23:15. Lactated Ringers [Ringers, Lactated] 1,000 ml IV ASDIRECTED. Oxytocin/Lactated Ringers [Pitocin in LR 10 Units/1,000 ML] 10 unit in 1,000 ml IV TITRATE. Oxytocin/Lactated Ringers [Pitocin in LR 20 Units/1,000 ML] 20 unit in 1,000 ml IV .CONTINUOUS. 02/25/20 Breakfast. Regular Diet [DIET]. 01:24. PATIENT RETYPE [BBK] Routine. - Assessment. Assessment:: Normal delivery no lacerations, premature rupture of membranes delivered in <24 hours, 39w3d EGA. - Plan. Plan:: Plan delivery Diagnosis: Stroke: No - Discharge Data Discharge Date: 02/27/20 Discharge Disposition: Home, Self-Care 01 Condition: Good - Referral to Home Health Primary Care Physician: Ortiz Morrissey MD - Discharge Diagnosis/Problem(s) (1) 39 weeks gestation of SNOMED Code(s): 68014056 ICD Code: Z3A.39 - 39 WEEKS GESTATION OF Status: Acute Current Visit: Yes (2) Premature rupture of membranes SNOMED Code(s): 69926015 ICD Code: O42.90 - TYSON ROM, 7TH0 BETW RUPT & ONST LABR, UNSP WEEKS OF GEST Status: Acute Current Visit: Yes Qualifiers: PROM onset of labor timing: onset of labor within 24 hours of rupture PROM gestational age: full term Qualified Code(s): O42.02 - Full-term premature rupture of membranes, onset of labor within 24 hours of rupture (3) Encounter for full-term uncomplicated delivery SNOMED Code(s): 501118461 ICD Code: O80 - ENCOUNTER FOR FULL-TERM UNCOMPLICATED DELIVERY Status: Acute Current Visit: Yes - Patient Summary/Data Complications: none Consults: none Hospital Course: uneventful - Patient Instructions Driving: Do Not Drive (x2 weeks) Showering/Bathing: May Shower Notify Provider of: Fever, Increased Pain, Swelling and Redness, Drainage, Nausea and/or Vomiting - Discharge Plan *PRESCRIPTION DRUG MONITORING PROGRAM REVIEWED*: Not Applicable *COPY OF PRESCRIPTION DRUG MONITORING REPORT IN PATIENT JOSHUA: Not Applicable Prescriptions/Med Rec: Acetaminophen [Masophen] 1,000 mg PO Q6H #50 tablet Home Medications: Home Meds Calcium Carbonate [Tums] 500 mg PO ASDIRECTED PRN 02/26/20 [History] Vits #93/Iron Fum/FA [ Formula Tablet] 1 each PO DAILY [History] Acetaminophen [Masophen] 1,000 mg PO Q6H #50 tablet 02/27/20 [Rx] Ibuprofen [Motrin] 600 mg PO Q6H PRN tablet 02/27/20 [Rx] Referrals: Beronica Daniel MD [Physician] - (will call for appointment) - Discharge Summary/Plan Comment DC Time >30 min.: No - Patient Data Vitals - Most Recent: Last Vital Signs Temp 97.9 F 02/27/20 03:20 Pulse 66 02/27/20 03:20 Resp 14 02/27/20 03:20 BP 117/84 02/27/20 03:20 Pulse Ox 98 02/27/20 03:20 Weight - Most Recent: 189 lb 3.2 oz I&O - Last 24 hours: Intake & Output 02/26/20 02/27/20 02/27/20 22:59 06:59 14:59 Intake Total 0 Balance 0 Lab Results - Last 24 hrs: Laboratory Results - last 24 hr 02/27/20 Range/Units 04:47 WBC 11.32 H (3.98-10.04) K/mm3 RBC 3.59 L (3.98-5.22) M/mm3 Hgb 10.7 L D (11.2-15.7) gm/dl Hct 34.1 (34.1-44.9) % MCV 95.0 H (79.4-94.8) fl MCH 29.8 (25.6-32.2) pg MCHC 31.4 L (32.2-35.5) g/dl RDW Std Deviation 44.0 (36.4-46.3) fL Plt Count 122 L (182-369) K/mm3 MPV 13.4 H (9.4-12.3) fl Neut % (Auto) 64.0 (34.0-71.1) % Lymph % (Auto) 27.9 (19.3-51.7) % Walker % (Auto) 6.6 (4.7-12.5) % Eos % (Auto) 1.2 (0.7-5.8) Baso % (Auto) 0.1 (0.1-1.2) % Neut # (Auto) 7.24 H (1.56-6.13) K/mm3 Lymph # (Auto) 3.16 (1.18-3.74) K/mm3 Walker # (Auto) 0.75 H (0.24-0.36) K/mm3 Eos # (Auto) 0.14 (0.04-0.36) K/mm3 Baso # (Auto) 0.01 (0.01-0.08) K/mm3 Med Orders - Current: Current Medications Acetaminophen (Tylenol) 650 mg PO Q4H PRN PRN Reason: mild pain or fever Last Admin: 02/26/20 20:59 Dose: 650 mg Docusate Sodium (Colace) 100 mg PO BID PRN PRN Reason: Constipation Ibuprofen (Motrin) 600 mg PO Q4H PRN PRN Reason: Mild pain or fever Last Admin: 02/27/20 09:13 Dose: 600 mg Witch Vania (Tucks) 1 pad TOP ASDIRECTED PRN PRN Reason: Perineal Comfort Measure Discontinued Medications Bupivacaine HCl (Sensorcaine-Mpf 0.25%) 10 ml .ROUTE .STK-MED ONE Stop: 02/26/20 11:01 Diphenhydramine HCl (Benadryl) 25 mg IVPUSH Q6H PRN PRN Reason: pruritis Ephedrine Sulfate (Ephedrine Sulfate) 5 mg IVPUSH ASDIRECTED PRN PRN Reason: Hypotension Fentanyl (Sublimaze) 100 mcg EPIDUR Q3H PRN PRN Reason: Pain Last Admin: 05/16/20 02:35 Dose: 100 mcg Fentanyl/Bupivacaine HCl (Fentanyl/Bupivacaine/Ns 2 Mcg-0.125% 100 Ml) 100 ml EPIDUR ASDIRECTED PRN PRN Reason: Pain Last Admin: 02/26/20 02:44 Dose: 100 ml Lactated Ringer's (Ringers, Lactated) 1,000 mls @ 100 mls/hr IV ASDIRECTED LINDA Last Admin: 02/26/20 06:16 Dose: 100 mls/hr Oxytocin/Lactated Ringer's (Pitocin In Lr 20 Units/1,000 Ml) 20 unit in 1,000 mls @ 500 mls/hr IV .CONTINUOUS LINDA Oxytocin/Lactated Ringer's (Pitocin In Lr 10 Units/1,000 Ml) 10 unit in 1,000 mls @ 12 mls/hr IV TITRATE LINDA; Protocol Last Admin: 02/26/20 11:32 Dose: 100 munits/min, 600 mls/hr Ibuprofen (Motrin) 600 mg PO Q6H PRN PRN Reason: Pain Last Admin: 02/26/20 09:03 Dose: 600 mg Nalbuphine HCl (Nubain) 10 mg IVPUSH Q2H PRN PRN Reason: Pain Ondansetron HCl (Zofran) 4 mg IVPUSH Q4H PRN PRN Reason: Nausea/Vomiting Sodium Chloride (Saline Flush) 10 ml FLUSH ASDIRECTED PRN PRN Reason: Keep Vein Open
--- NOTE | 2020-02-27 17:52 | PCM48HPAN ---
Post Anesthesia Note - EVALUATION WITHIN 48HRS OF ANESTHETIC Vital Signs in Normal Range: Yes Patient Participated in Evaluation: Yes Respiratory Function Stable: Yes Airway Patent: Yes Cardiovascular Function Stable: Yes Hydration Status Stable: Yes Pain Control Satisfactory: Yes Nausea and Vomiting Control Satisfactory: Yes Mental Status Recovered: Yes Vital Signs: Last Vital Signs Temp 36.6 C 02/27/20 03:20 Pulse 66 02/27/20 03:20 Resp 14 02/27/20 03:20 BP 117/84 02/27/20 03:20 Pulse Ox 98 02/27/20 03:20
== END 2020-02-27 11:15 | disposition home or self-care (01) | DRG 560 ==
LOC: JD.OBCHECK 21:55 → JD.OB 21:59 → JD.OBCHECK 23:27 → JD.OB 23:27 → OBSVTOIN 02-26 07:25 → JD.MS 02-26 07:26 → JD.OB 02-26 16:10
PROVIDERS: ADMIT Obstetrics & Gynecology; ATTEND Obstetrics & Gynecology
PROC: 10E0XZZ Delivery of Products of Conception, External Approach (ICD-10-PCS; principal; 2020-02-26)
PROC: 3E0R3BZ Introduction of Anesthetic Agent into Spinal Canal, Percutaneous Approach (ICD-10-PCS; 2020-02-26)
DX: O42.02 Full-term premature rupture of membranes, onset of labor within 24 hours of rupture (principal); Z3A.39 39 weeks gestation of pregnancy; Z37.0 Single live birth; O69.81X0 Labor and delivery complicated by cord around neck, without compression, not applicable or unspecified
CPT/HCPCS: 01967; 36415; 51702; 59025; 59409; 84112; 85025; 86592; 86850; 86900; 86901; A9270-GY; J2590; J3010; J3490; J7120